=== PATIENT | male | born 1965 | race Caucasian/White ===

== ENCOUNTER 2018-04-30 22:22 | Emergency (ER) | payer BC ==
[2018-04-30 22:28] VITALS: TEMP 98.3; BMI 34.7
--- NOTE | 2018-04-30 22:44 | PDOC ---
Attending Attestation - HPI HPI: 04/30/18 23:46 The patient is a 52 year old male with a PMH of umbilical hernia repair, diverticulitis, and HTN who is presenting with abdominal pain and distension for the past three days. The patient describes the abdominal pain as 10/10 in intensity and non-radiating. Patient states he ate spoiled chicken and vomited multiple times several days ago, which were all nonbloody, nonbilious. He has tried multiple medications at home with no relief. The patient denies chest pain, shortness of breath, headache, and dizziness. Denies fever, chills, nausea, diarrhea and constipation. Denies dysuria, frequency, urgency and hematuria. Allergies: NKA Past surgical history: None reported. Social history: No reported alcohol, drug or cigarette use. <Yuki Torres - Last Filed: 04/30/18 23:46> - Physicial Exam PE: GENERAL: Awake, alert, and fully oriented, in no acute distress. Afebrile. HEAD: No signs of trauma EYES: PERRLA, EOMI, sclera anicteric, conjunctiva clear ENT: Auricles normal inspection, hearing grossly normal, nares patent, oropharynx clear without exudates. Moist mucosa NECK: Normal ROM, supple, no lymphadenopathy, JVD, or masses LUNGS: Breath sounds equal, clear to auscultation bilaterally. No wheezes, and no crackles HEART: Regular rate and rhythm, normal S1 and S2, no murmurs, rubs or gallops ABDOMEN: Soft, nontender, gassy bowel sounds, high pitched bowel sounds in right and center. No guarding, no rebound. No masses EXTREMITIES: Normal range of motion, no edema. No clubbing or cyanosis. No cords, erythema, or tenderness NEUROLOGICAL: Cranial nerves II through XII grossly intact. Normal speech, ambulatory, normal gait. SKIN: Warm, Dry, normal turgor, no rashes or lesions noted. <Vijaya Martinez - Last Filed: 05/01/18 00:21> - Resident Resident Name: Jennifer Arreola - ED Attending Attestation I have performed the following: I have examined & evaluated the patient, The case was reviewed & discussed with the resident, I agree w/resident's findings & plan - Medical Decision Making 05/01/18 03:06 Patient Name: NORMA ROMERO THIS IS A PRELIMINARY REPORT FROM [facility]NA[facility] DATE OF SERVICE: 2018-05-01 02:12:10 IMAGES: [id number] EXAM: CT ABDOMEN \T\ PELVIS CT W/O CONTR HISTORY: Ileus, or obstruction COMPARISON: None. FINDINGS: Abdomen Liver: Normal Spleen: Normal Pancreas: Normal CONFIDENTIALITY NOTICE: This information is intended only for the use of the recipient(s) named above. If you are not the intended recipient, or a person responsible for delivering it to the intended recipient, you are hereby notified that any disclosure, copying, distribution or use of any of the information contained in or attached to this transmission is STRICTLY PROHIBITED. If you have received this transmission in error, please immediately notify [facility] Therapy Assistant and destroy the original transmission and its attachments without saving them in any manner [address] [place] [address] [place] [address] Phone: [phone] ([phone]) Fax: Email: [email or web address] Web: [email or web address] Patient Information: : 1965 Order Type: Preliminary Name: NICK GREEN Sex: M Study Description: CT ABDOMEN AND PELVIS Modality: CT Location: [facility] Referring Physician: JESSE GUADALUPE Gallbladder: Normal Stomach: Normal Small bowel: Normal Large bowel: There is some nodular appearing focal thickening in the sigmoid colon. There is diverticulosis Appendix: Normal Adrenals:Normal Kidneys: There is a 1.3 cm stone at the left ureteropelvic junction with moderate hydronephrosis and renal pelvis distention. There are left calyceal stones. There is a right renal cyst Vascular: Normal Lymphatic: There are mildly prominent mesenteric lymph nodes in the inferior mesenteric space adjacent to the thickened segment of sigmoid colon Peritoneal: No free peritoneal air or fluid Pelvis: Prostate: normal Rectum: There is some rectal wall thickening Bladder: There is a 6.4 x 2.6 x 2.2 cm focal mural thickening in the right superior bladder The inferior thorax: Normal General: Skeletal: Normal Abdominal wall: Normal IMPRESSION: Obstructive uropathy. Bladder mass possibly related to a bladder neoplasm. Nodular thickening in the rectum and sigmoid colon possibly relating to rectosigmoid colorectal neoplasm, or colitis and proctitis Pt is refusing to stay inpatient for his stone. He will follow with urologist demolition worker Santo. He was given [address] scan result and he is aware of his Obstructing stone and worsening kidney function. <Tiera Montano - Last Filed: 05/01/18 03:08>
[2018-04-30] MEDS ORDERED: SODIUM CHLORIDE 0.9% 500 ML INFUS.BAG IV ONE (22:52)
[2018-04-30] MEDS ORDERED: ACETAMINOPHEN 1000 MG/100 ML VIAL (NON FORMULARY) IVPB ONE (22:52)
[2018-04-30] MEDS ORDERED: ONDANSETRON 4 MG/2 ML VIAL IVPUSH ONE (22:56)
--- NOTE | 2018-04-30 22:59 | PDOC ---
History of Present Illness <CharmaineTiera - Last Filed: 05/01/18 02:56> - General History Source: Patient, Significant Other Exam Limitations: No Limitations - History of Present Illness Initial Comments: 04/30/18 22:53 [id number] with h/o umbilical hernia repair, diverticulitis (last flare years ago), and HTN, who p/w 10/10 non-radiating diffuse abdominal pain and distention worsening for the past 3 days. He has not had any bowel movement and states has not passed gas, which is outside his baseline. Just prior to the onset he believes he ate some spoiled chicken and vomited about 4 times, NBNB. Denies rectal bleeding. He has tried multiple kinds of laxatives without relief. <Jennifer Arreola - Last Filed: 05/01/18 03:05> - General Chief Complaint: Pain, Acute Stated Complaint: ABDOMINAL PAIN Time Seen by Provider: 04/30/18 22:41 Past History <CharmaineTiera - Last Filed: 05/01/18 02:56> - Past Medical History Anemia: No Asthma: No Cancer: No Cardiac Disorders: No CVA: No COPD: No CHF: No Dementia: No Diabetes: No GI Disorders: Yes (DIVERTICULITIS) Disorders: Yes (RENAL CALCULI) HTN: Yes Hypercholesterolemia: No Kidney Stones: Yes Liver Disease: No Seizures: No Thyroid Disease: No - Surgical History Abdominal Surgery: No Appendectomy: No Cardiac Surgery: No Cholecystectomy: No Lung Surgery: No Neurologic Surgery: No Orthopedic Surgery: Yes (R. Knee, R. thigh, L. Calf) - Immunization History Immunization Up to Date: Yes - Suicide/Smoking/Psychosocial Hx Smoking History: Never smoked Have you smoked in the past 12 months: No Number of Cigarettes Smoked Daily: 20 Information on smoking cessation initiated: No 'Breaking Loose' booklet given: 06/11/13 Hx Alcohol Use: No Drug/Substance Use Hx: No Substance Use Type: Alcohol Hx Substance Use Treatment: No <Jennifer Arreola - Last Filed: 05/01/18 03:05> - Past Medical History Allergies/Adverse Reactions: Allergies Allergy/AdvReac Type Severity Reaction Status Date / Time No Known Drug Allergies Allergy Verified 04/30/18 22:28 Home Medications: Ambulatory Orders Hydrochlorothiazide [Hctz -] 50 mg PO DAILY 06/11/13 Valsartan [Diovan] 325 mg PO DAILY 06/11/13 Chavez Extract 1 cap PO DAILY 11/09/13 Cyanocobalamin (Vitamin B-12) [Vitamin B-12] 50 mcg PO DAILY 11/09/13 Pnv/Iron,Carb/Om-3/FA/Fat 1 [Multivitamin with Minerals Cap] 1 each PO DAILY Pyridoxine HCl [Vitamin B6] 50 mg PO DAILY 11/09/13 Acetaminophen W/ Codeine #3 [Tylenol # 3 -] 1 tab PO Q6H #20 tablet 11/10/13 Review of Systems - Review of Systems Able to Perform ROS?: Yes Comments:: 04/30/18 22:57 GEN: subjective fever, chills, malaise, no generalized weakness HEENT: no ear pain, sore throat, vision change, or eye pain CV: no chest pain, palpitations, lightheadedness, syncope, or edema RESP: SOB, no cough, or wheezing GI: abdominal pain, distention, nausea, vomiting, constipation, no diarrhea, or white/black/bloody stool : no dysuria, hematuria, incontinence, retention, bleeding, or discharge MSK: no neck/back pain, muscle weakness/pain, or joint swelling/pain NEURO: no headache, seizure, vertigo, numbness, tingling, or focal weakness PSYCH: no substance use, no behavior change SKIN: no jaundice, no rash ROS otherwise negative except as noted in HPI <Jennifer Arreola - Last Filed: 05/01/18 03:05> *Physical Exam - Vital Signs Last Vital Signs Temp Pulse Resp BP Pulse Ox 98.3 F 85 16 134/90 100 04/30/18 22:26 04/30/18 22:26 04/30/18 22:26 04/30/18 22:26 04/30/18 22:26 <Tiera Montano - Last Filed: 05/01/18 02:56> - Vital Signs Last Vital Signs Temp Pulse Resp BP Pulse Ox 98.3 F 85 16 134/90 100 04/30/18 22:26 04/30/18 22:26 04/30/18 22:26 04/30/18 22:26 04/30/18 22:26 - Physical Exam Comments: 04/30/18 23:51 GENERAL: uncomfortable appearing, nontoxic, A/Ox4, mild distress, answers questions appropriately, odor of tobacco HEENT: PERRLA, EOMI, moist mucous membranes NECK/BACK: no midline ttp, no spinal stepoff or deformity, no hematoma, full ROM , neck supple CARDIOVASCULAR: regular rate/rhythm, normal S1S2, no MGR, strong peripheral pulses, capillary refill <2 seconds, extremities wwp, no edema LUNGS/RESPIRATORY: no respiratory distress, CTAB GI/ABDOMEN: distended, symmetric [id number], normoactive BS, mild diffuse tenderness to palpation, no midline pulsatile masses, rectal with small external hemorrhoid, no stool in the rectal vault, no blood : no CVA tenderness EXTREMITIES: no muscle atrophy, no acute deformity, no edema SKIN: warm and dry, no pallor, no jaundice, no rash, no bruising, no skin breakdown, no cuts, no lesions NEUROLOGICAL: GCS 15, CN II-XII grossly intact, 5/5 strength proximally and distally, no facial droop <Jennifer Arreola - Last Filed: 05/01/18 03:05> Moderate Sedation - Procedure Monitoring Vital Signs: Procedure Monitoring Vital Signs Temperature 98.3 F 04/30/18 22:26 Pulse Rate 85 04/30/18 22:26 Respiratory Rate 16 04/30/18 22:26 Blood Pressure 134/90 04/30/18 22:26 O2 Sat by Pulse Oximetry (%) 100 04/30/18 22:26 <Tiera Montano - Last Filed: 05/01/18 02:56> - Procedure Monitoring Vital Signs: Procedure Monitoring Vital Signs Temperature 98.3 F 04/30/18 22:26 Pulse Rate 85 04/30/18 22:26 Respiratory Rate 16 04/30/18 22:26 Blood Pressure 134/90 04/30/18 22:26 O2 Sat by Pulse Oximetry (%) 100 04/30/18 22:26 <Jennifer Arreola - Last Filed: 05/01/18 03:05> ED Treatment Course - LABORATORY CBC & Chemistry Diagram: 04/30/18 23:00 05/01/18 01:09 - ADDITIONAL ORDERS Additional order review: Laboratory Results 05/01/18 04/30/18 04/30/18 01:09 23:00 23:00 PT with INR INR PTT (Actin FS) Sodium 134 L Potassium 4.1 Chloride 96 L Carbon Dioxide 28 Anion Gap 10 BUN 20 H Creatinine 1.6 H Creat Clearance w eGFR 45.80 Random Glucose 101 Lactic Acid 1.4 Calcium 9.3 Phosphorus Magnesium Total Bilirubin 0.7 AST 25 ALT 29 Alkaline Phosphatase 107 Total Protein 7.6 Albumin 3.7 Lipase Blood Type O POSITIVE Antibody Screen Negative 04/30/18 04/30/18 04/30/18 23:00 23:00 23:00 PT with INR 12.40 INR 1.05 PTT (Actin FS) 34.1 Sodium Potassium Chloride Carbon Dioxide Anion Gap BUN Creatinine Creat Clearance w eGFR Random Glucose Lactic Acid Calcium Phosphorus 3.9 Magnesium 2.0 Total Bilirubin AST ALT Alkaline Phosphatase Total Protein Albumin Lipase 76 Blood Type Antibody Screen 04/30/18 23:00 RBC 4.94 MCV 86.2 MCHC 35.5 RDW 13.9 MPV 9.4 Neutrophils % 79.3 Lymphocytes % 7.9 L D Monocytes % 11.3 H Eosinophils % 1.1 Basophils % 0.4 - RADIOLOGY Radiology Studies Ordered: Category Date Time Status ABDOMEN & PELVIS CT W/O CONTR [CT] Stat CT Scan 05/01/18 02:02 Taken - Medications Given in the ED: ED Medications Discontinued Medications Generic Name Dose Route Start Last Admin Trade Name Freq PRN Reason Stop Dose Admin Acetaminophen 1,000 mg 04/30/18 22:52 04/30/18 23:18 Ofirmev Injection - IVPB 04/30/18 22:53 1,000 mg ONCE ONE Administration Ondansetron HCl 4 mg 04/30/18 22:56 04/30/18 23:24 Zofran Injection IVPUSH 04/30/18 22:57 4 mg NOW ONE Administration Sodium Chloride 1,000 ml 04/30/18 22:52 04/30/18 23:18 Normal Saline - IV 04/30/18 22:53 1,000 ml ONCE ONE Administration <Tiera Montano - Last Filed: 05/01/18 02:56> - LABORATORY CBC & Chemistry Diagram: 04/30/18 23:00 05/01/18 01:09 - RADIOLOGY Radiology Studies Ordered: Category Date Time Status ABDOMEN & PELVIS CT WITH CONTR [CT] Stat CT Scan 04/30/18 22:52 Ordered <Jennifer Arreola - Last Filed: 05/01/18 03:05> Medical Decision Making - Medical Decision Making 04/30/18 23:55 Pt presents with abdominal distention and discomfort. Initial Vital Signs Temp Pulse Resp BP Pulse Ox 98.3 F 85 16 134/90 100 04/30/18 22:26 04/30/18 22:26 04/30/18 22:26 04/30/18 22:26 04/30/18 22:26 Exam: As noted in Physical Exam section. DDX IBNLT: SBO, constipation, gas, diverticulitis or colitis wwo abscess or perforation, less likely ascites, abdominal compartment syndrome, toxic megacolon, appendicitis wwo rupture, pancreatitis wwo abscess/pseudocyst (MC cause gallstones and EtOH; also hypercalcemia, neoplasm, medications, ERCP complication, abdominal surgery/instrumentation, trauma, SBP (raheem. w/ h/o cirrhosis/EtOH), AAA/AD wwo rupture, ischemic colitis wwo perforation (embolism , bowel obstruction, inadequate systemic perfusion, medications, surgery- induced vascular compromise), etc. W/U ordered: Labs as noted below, CT A/P TX ordered: EKG: CXR: Labs: Reassessment: Repeat VS: ADMIT The Pts symptoms persist despite ED treatments. The Pt is unsafe for discharge at this time. They require further hospital observation, workup, and treatment. Microblog sent to [facility] for admission.Blank Decision to Admit order is placed per ED protocol. Spoke with admitting team procurement representative, in agreement Pt to be admitted.Decision to Admit order corrected with admitting team covering attendings name. DISCHARGE This patient has gotten significant relief of symptoms while in the ED.On last reassessment, vitals are wnl, pain is reasonably controlled, and exam is benign.Workup is not concerning for emergency-level pathology at this time.This patient is appropriate for discharge with close outpatient follow up. The Pt is comfortable with this plan and will follow up with their primary care provider in 1-3 days. She will take Motrin and/or Tylenol for pain. Specific return precautions are discussed and they will come back to the ER if necessary. <Jennifer Arreola - Last Filed: 05/01/18 03:05> *DC/Admit/Observation/Transfer - Discharge Dispostion Decision to Admit order: No <Tiera Montano - Last Filed: 05/01/18 02:56> - Discharge Dispostion Decision to Admit order: No <Jennifer Arreola - Last Filed: 05/01/18 03:05> Diagnosis at time of Disposition: Kidney stone, Mass of bladder, Constipation, Food poisoning - Discharge Dispostion Disposition: HOME Condition at time of disposition: Stable - Referrals Referrals: Scott Blanchard MD., [Staff Physician] - Roderick Irvin MD [Staff Physician] - - Patient Instructions Printed Discharge Instructions: Kidney Stones -- Adult, Cystoscopy, Extracorporeal Shock Wave Lithotripsy, Hydronephrosis -- Adult
[2018-04-30] MEDS ORDERED: ACETAMINOPHEN INJECTION 100 ML IVPB ONE (23:06)
[2018-04-30] MEDS ORDERED: ONDANSETRON 4 MG/2 ML VIAL ONE (23:19)
[2018-04-30 23:43] LABS: BASO % 0.4 % (0-2.0); EOS % 1.1 % (0-4.5); HEMATOCRIT 42.6 % (35.4-49); HEMOGLOBIN 15.1 GM/dL (11.7-16.9); LYMPH % 7.9 % (8-40); MCH 30.6 pg (25.7-33.7); MCHC 35.5 g/dl (32.0-35.9); MEAN CELL VOLUME 86.2 fl (80-96); MEAN PLT VOLUME 9.4 fl (7.5-11.1); MONO % 11.3 % (3.8-10.2); NEUT % 79.3 % (42.8-82.8); PLATELET COUNT 242 K/MM3 (134-434); RBC 4.94 M/mm3 (4.00-5.60); RDW 13.9 % (11.9-15.9); WHITE BLOOD COUNT 14.4 K/mm3 (4.0-10.0)
[2018-04-30 23:56] LABS: INR 1.05 (0.83-1.09); PROTHROMBIN TIME (PATIENT) 12.4 SEC (9.7-13.0)
[2018-04-30 23:58] LABS: ACTIVATED PTT 34.1 SECONDS (25.2-36.5)
[2018-05-01] MEDS ORDERED: POLYETHYLENE GLYCOL 3350 119 GM BTL PO ONE (00:16)
[2018-05-01 00:56] LABS: PHOSPHOROUS 3.9 mg/dL (2.5-4.9)
[2018-05-01 01:42] LABS: ALBUMIN 3.7 g/dl (3.4-5.0); ALK PHOS 107 U/L (45-117); ANION GAP 10 MMOL/L (8-16); BILIRUBIN,TOTAL 0.7 mg/dL (0.2-1); BLOOD UREA NITROGEN 20 mg/dL (7-18); CALCIUM 9.3 mg/dL (8.5-10.1); CHLORIDE 96 mmol/L (98-107); CO2 28 mmol/L (21-32); CREATININE 1.6 mg/dL (0.55-1.3); GLUCOSE,RANDOM 101 mg/dL (74-106); POTASSIUM 4.1 mmol/L (3.5-5.1); SGOT/AST 25 U/L (15-37); SGPT/ALT 29 U/L (13-61); SODIUM 134 mmol/L (136-145); TOT PROT 7.6 g/dl (6.4-8.2)
[2018-05-01 02:45] LABS: URINE APPEARANCE CLEAR; URINE BILIRUBIN NEGATIVE (<2.0 mg/dL); URINE COLOR LTYELLOW; URINE GLUCOSE (UA) NEGATIVE (NEGATIVE); URINE KETONE NEGATIVE (NEGATIVE); URINE LEUK ESTERASE NEGATIVE (NEGATIVE); URINE NITRITE NEGATIVE (NEGATIVE); URINE PROTEIN NEGATIVE (NEGATIVE); URINE UROBILINOGEN NEGATIVE mg/dL (0.2-1.0)
[2018-05-01 03:46] VITALS: BP 136/78; PULSE 78
== END 2018-05-01 03:47 | disposition home or self-care (01) ==
LOC: JER 22:22
PROC: 3E033GC Introduction of Other Therapeutic Substance into Peripheral Vein, Percutaneous Approach (ICD-10-PCS; principal; 2018-04-30)
PROC: 3E033NZ Introduction of Analgesics, Hypnotics, Sedatives into Peripheral Vein, Percutaneous Approach (ICD-10-PCS; 2018-04-30)
DX: N13.2 Hydronephrosis with renal and ureteral calculous obstruction (principal); K59.00 Constipation, unspecified; N32.89 Other specified disorders of bladder; T62.8X1A Toxic effect of other specified noxious substances eaten as food, accidental (unintentional), initial encounter; Z87.442 Personal history of urinary calculi
CPT/HCPCS: 36415; 74176-TC; 80053; 81003; 83605; 83690; 83735; 84100; 85025; 85610; 85730; 86850; 86900; 86901; 87086; 99281-25; J0131